=== PATIENT | male | born 1975 | race Caucasian/White ===

== ENCOUNTER 2020-06-07 15:36 | Emergency (ER) | payer BC ==
--- NOTE | 2020-06-07 15:54 | PDOC ---
Rapid Medical Evaluation Time Seen by Provider: 06/07/20 15:51 Medical Evaluation: 06/07/20 15:52 45 year old male pmhx seizures complaining of chest pain and tightness as well as heartburn like symptoms PE: CTA RRR VSS Plan Labs EKG CXr
[2020-06-07 16:00] VITALS: TEMP 97.7; BMI 21.6
--- OUTSIDE RECORDS SUMMARY | 2020-06-07 16:41 | XMS ---
:1975 Author Organization [facility] Support Name Relationship Address Phone [employer] Unavailable [address] [phone] [place] [address] DAXA CONTRERAS [address] [facility] [address] Re-disclosure Warning The records that you are about to access may contain information from federally- assisted alcohol or drug abuse programs. If such information is present, then the following federally mandated warning applies: This information has been disclosed to you from records protected by federal confidentiality rules (42 CFR part 2). The federal rules prohibit you from making any further disclosure of this information unless further disclosure is expressly permitted by the written consent of the person to whom it pertains or as otherwise permitted by 42 CFR part 2. A general authorization for the release of medical or other information is NOT sufficient for this purpose. The Federal rules restrict any use of the information to criminally investigate or prosecute any alcohol or drug abuse patient.The records that you are about to access may contain highly sensitive health information, the redisclosure of which is protected by Article 27-F of the [facility] Public Health law. If you continue you may haveaccess to information: Regarding HIV / AIDS; Provided by facilities licensed or operated by the [facility] Office of Mental Health; or Provided by the [facility] Office for People With Developmental Disabilities. If such information is present, then the following [facility] mandated warning applies: This information has been disclosed to you from confidential records which are protected by state law. State law prohibits you from making any further disclosure of this information without the specific written consent of the person to whom it pertains, or as otherwise permitted by law. Any unauthorized further disclosure in violation of state law may result in a fine or residential sentence or both. A general authorization for the release of medical or other information is NOT sufficient authorization for further disclosure. Insurance Providers Payer name Policy type Policy ID Covered Covered alliance party's Policy P jaime / Coverage alliance party ID relationship to Gill Inf ormation type gill [facility]ANNE [facility] [id number] [facility] 94 Results ID Date Data Source [id number] 05/28/2020 12:00:00 AM EDT [facility] Name Value Range Interpretation Code Description Data Letha rce(s) Supporting Document(s ) nCoV [facility] RNA XXX TEENA+probe- Imp This lab was ordered by [facility]RE[facility] and reported by [employer] ID Date Data Source [id number] 02/29/2020 12:00:00 AM EDT [facility] Name Value Range Interpretation Code Description Data Letha rce(s) Supporting Document(s ) COV2 [facility] This lab was ordered by [facility] and reported by [facility]. ID Date Data Source [id number] 12/17/2019 12:00:00 AM EDT [facility] Name Value Range Interpretation Code Description Data Letha rce(s) Supporting Document(s ) V [facility] RNA XXX TEENA+probe- Imp This lab was ordered by [facility]RELL and reported by [employer] Procedure
--- NOTE | 2020-06-07 17:55 | PDOC ---
History of Present Illness - General Chief Complaint: Chest Pain Stated Complaint: PALPITATIONS Time Seen by Provider: 06/07/20 15:51 History Source: Patient Exam Limitations: No Limitations - History of Present Illness Initial Comments: 06/07/20 17:51 45-year-old male with history of seizure and asthma presents the ED with complaints of generalized chest tightness for the past few weeks intermittently along with palpitations and today develop "tingling to his left arm which prompted him to go to [facility] . 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 He also states has a CT of the chest pending next week. Presenting Symptoms: Chest Pain Timing/Duration: reports: intermittent Severity/Quality: reports: mild Location: reports: substernal Chest Pain Radiation: reports: no radiation Activities at Onset: reports: none Prior Chest Pain/Cardiac Workup: reports: No prior chest pain Associated Symptoms: Yes: Chest Pain/pressure, Heartburn, Palpitations Past History - Travel History Traveled outside of the country in the last 30 days: No Close contact w/someone who was outside of country & ill: No - Medical History Allergies/Adverse Reactions: Allergies Allergy/AdvReac Type Severity Reaction Status Date / Time No Known Allergies Allergy Verified 06/07/20 15:59 Home Medications: Ambulatory Orders NK [No Known Home Medication] 06/07/20 COPD: No Seizures: Yes (EPILEPSY) Other medical history: PSORIASIS - Psycho-Social/Smoking History Patient Lives Alone: Yes Lives with/in: lives alone Smoking History: Never smoked Review of Systems - Review of Systems Able to Perform ROS?: Yes Constitutional: No: Symptoms Reported HEENTM: No: Symptoms Reported Respiratory: No: Symptoms reported Cardiac (ROS): Yes: Chest Pain, Palpitations ABD/GI: No: Symptoms Reported : No: Symptoms Reported Musculoskeletal: No: Symptoms Reported Integumentary: No: Symptoms Reported Neurological: Yes: Numbness, Tingling Endocrine: No: Symptoms Reported Hematologic/Lymphatic: No: Symptoms Reported *Physical Exam - Vital Signs Last Vital Signs Temp Pulse Resp BP Pulse Ox 97.7 F 90 18 138/89 100 06/07/20 15:57 06/07/20 15:57 06/07/20 15:57 06/07/20 15:57 06/07/20 15:57 - Physical Exam General Appearance: Yes: Nourished, Appropriately Dressed. No: Apparent Distress HEENT: negative: Pale Conjunctivae Neck: positive: Normal Thyroid, Supple Respiratory/Chest: positive: Lungs Clear, Normal Breath Sounds. negative: Chest Tender, Respiratory Distress, Accessory Muscle Use Cardiovascular: positive: Regular Rhythm, Regular Rate. negative: Murmur Gastrointestinal/Abdominal: positive: Soft. negative: Tenderness Integumentary: positive: Normal Color, Warm, Moist Neurologic: positive: Motor Strength 5/5 (ambulatory) Heart Score/ECG Review - ECG Intrepretation Rhythm: Regular Rhythm (Normal sinus rhythm rate 64. QTc 418 ms.) ED Treatment Course - LABORATORY CBC & Chemistry Diagram: 06/07/20 17:45 06/07/20 17:45 - ADDITIONAL ORDERS Additional order review: Laboratory Results 06/07/20 17:45 Sodium 140 Potassium 4.2 Chloride 102 Carbon Dioxide 33 H Anion Gap 4 L BUN 12.5 Creatinine 1.0 Est GFR (CKD-EPI)AfAm 104.15 Est GFR (CKD-EPI)NonAf 89.86 Random Glucose 97 Calcium 9.6 Total Bilirubin 1.2 H AST 24 ALT 51 Alkaline Phosphatase 89 Creatine Kinase 60 Troponin I < 0.02 Total Protein 7.8 Albumin 4.6 06/07/20 17:45 RBC 5.55 MCV 86.2 MCHC 34.9 RDW 13.0 MPV 7.2 L Neutrophils % 61.4 Lymphocytes % 23.6 Monocytes % 10.2 Eosinophils % 3.0 Basophils % 1.8 Medical Decision Making - Medical Decision Making 06/07/20 17:59 Chief complaint: Patient with intermittent chest palpitations along with tingling to the left arm along with chest pressure x3 weeks Exam: vss, lungs clear to auscultation no reproducible chest pain. No edema. 5 out of 5 strength to left arm. 2+ radial pulses normal capillary refill. Plan: Labs, EKG, chest x-ray TSH. 06/07/20 18:32 Patient requesting IV to be removed stating his left arm is tingling and feels "weird. Patient also stating swelling to the left hand. As assessed and reviewed by myself and the nurse, Patient had normal sensation along with no edema. No medications was placed to the IV and only utilized for blood drawing 06/07/20 18:34 Laboratory Tests 06/07/20 17:45 WBC 5.7 Hgb 16.7 Hct 47.8 MPV 7.2 L Absolute Neuts (auto) 3.5 Lymphocytes % 23.6 Monocytes % 10.2 06/07/20 18:53 Laboratory Tests 06/07/20 17:45 Sodium 140 Potassium 4.2 Chloride 102 Carbon Dioxide 33 H Anion Gap 4 L Random Glucose 97 Total Bilirubin 1.2 H AST 24 ALT 51 Alkaline Phosphatase 89 Creatine Kinase 60 Troponin I < 0.02 Chest x-ray negative for acute pathology. TSH pending. Discharge - Follow up/Referral Referrals: ON STAFF,NOT [Primary Care Provider] - - Patient Discharge Instructions - Post Discharge Activity
[2020-06-07 18:04] LABS: BASO % 1.8 % (0-2.0); HEMATOCRIT 47.8 % (35.4-49); HEMOGLOBIN 16.7 GM/dL (11.7-16.9); LYMPH % 23.6 % (8-40); MCH 30.1 pg (25.7-33.7); MCHC 34.9 g/dl (32.0-35.9); MEAN CELL VOLUME 86.2 fl (80-96); MEAN PLT VOLUME 7.2 fl (7.5-11.1); MONO % 10.2 % (3.8-10.2); NEUT % 61.4 % (42.8-82.8); PLATELET COUNT 283 K/MM3 (134-434); RBC 5.55 M/mm3 (4.00-5.60); WHITE BLOOD COUNT 5.7 K/mm3 (4.0-10.0)
[2020-06-07 18:43] LABS: ALBUMIN 4.6 g/dl (3.4-5.0); ALK PHOS 89 U/L (45-117); ANION GAP 4 MMOL/L (8-16); BILIRUBIN,TOTAL 1.2 mg/dL (0.2-1); BLOOD UREA NITROGEN 12.5 mg/dL (7-18); CALCIUM 9.6 mg/dL (8.5-10.1); CHLORIDE 102 mmol/L (98-107); CO2 33 mmol/L (21-32); GLUCOSE,RANDOM 97 mg/dL (74-106); POTASSIUM 4.2 mmol/L (3.5-5.1); SGOT/AST 24 U/L (15-37); SGPT/ALT 51 U/L (13-61); SODIUM 140 mmol/L (136-145); TOT PROT 7.8 g/dl (6.4-8.2)
--- NOTE | 2020-06-07 19:45 | PDOC ---
*Physical Exam - Vital Signs Last Vital Signs Temp Pulse Resp BP Pulse Ox 97.7 F 90 18 138/89 100 06/07/20 15:57 06/07/20 15:57 06/07/20 15:57 06/07/20 15:57 06/07/20 15:57 ED Treatment Course - LABORATORY CBC & Chemistry Diagram: 06/07/20 17:45 06/07/20 17:45 - ADDITIONAL ORDERS Additional order review: Laboratory Results 06/07/20 17:45 Sodium 140 Potassium 4.2 Chloride 102 Carbon Dioxide 33 H Anion Gap 4 L BUN 12.5 Creatinine 1.0 Est GFR (CKD-EPI)AfAm 104.15 Est GFR (CKD-EPI)NonAf 89.86 Random Glucose 97 Calcium 9.6 Total Bilirubin 1.2 H AST 24 ALT 51 Alkaline Phosphatase 89 Creatine Kinase 60 Troponin I < 0.02 Total Protein 7.8 Albumin 4.6 TSH 1.23 06/07/20 17:45 RBC 5.55 MCV 86.2 MCHC 34.9 RDW 13.0 MPV 7.2 L Neutrophils % 61.4 Lymphocytes % 23.6 Monocytes % 10.2 Eosinophils % 3.0 Basophils % 1.8 Medical Decision Making - Medical Decision Making TSH WNl patient to yuriy dillon with his pcp Discharge - Discharge Information Problems reviewed: Yes Clinical Impression/Diagnosis: Palpitations Condition: Improved Disposition: HOME - Follow up/Referral Referrals: ON STAFF,NOT [Primary Care Provider] - - Patient Discharge Instructions Patient Printed Discharge Instructions: DI for Palpitations Additional Instructions: Please follow-up with your primary care doctor. Return to the emergency room for any worsening symptoms - Post Discharge Activity
[2020-06-07 20:02] VITALS: BP 128/72; PULSE 88
--- NOTE | 2020-06-08 10:06 | EKG ---
Test Reason : Blood Pressure : / mmHG Vent. Rate : 064 BPM Atrial Rate : 064 BPM P-R Int : 174 ms QRS Dur : 114 ms QT Int : 406 ms P-R-T Axes : 055 -30 049 degrees QTc Int : 418 ms NORMAL SINUS RHYTHM LEFT AXIS DEVIATION ABNORMAL ECG NO PREVIOUS ECGS AVAILABLE Confirmed by MD Zeferino, Blayne ([id number]) on 06/08/2020 10:06:36 AM Referred By: Confirmed By:Blayne Mcgarry MD
== END 2020-06-07 20:01 | disposition home or self-care (01) ==
LOC: JER 15:36
DX: R00.2 Palpitations (principal)
CPT/HCPCS: 36415; 71046-TC-FY; 80053; 82550; 84443; 84484; 85025; 93005; 93010; 99285-25